=== PATIENT | male | born 1950 | race Caucasian/White ===

== ENCOUNTER → 2017-12-08 13:55 | Outpatient (REF) | payer OTHER, MEDICARE, SELFPAY ==
[2017-12-08 14:10] LABS: Basophils % 0.5 % (0.1-2.0); Eosinophils # 0.3 K/mm3 (0.0-0.4); Eosinophils % 3.9 % (0.1-12.0); Hematocrit 46.8 % (42.0-52.0); Lymphocytes # 1.8 K/mm3 (0.7-4.5); Lymphocytes % 24.5 K/mm3 (10-50); Mean Corpuscular HGB Conc 32.1 g/dL (31.8-35.4); Mean Corpuscular Volume 90.3 fl (80-94); Mean Platelet Volume 7.5 fl (7.4-10.4); Monocytes # 0.5 K/mm3 (0.1-1.0); Monocytes % 6.3 % (1.7-9.3); Neutrophils # 4.7 K/mm3 (1.8-7.8); Neutrophils % 64.7 % (37.0-80.0); Platelet Count 197 K/mm3 (142-424); Red Blood Count 5.18 M/mm3 (4.60-6.20); Red Cell Distribution Width 15.2 % (11.5-17.5); White Blood Count 7.3 K/mm3 (4.8-10.8)
[2017-12-08 14:23] LABS: Alanine Aminotransferase 50 U/L (12-78); Albumin Level 4.2 gm/dL (3.4-5.0); Albumin/Globulin Ratio 1.3 (1.1-1.8); Alkaline Phosphatase 102 U/L (46-116); Anion Gap 10.3 mEq/L (5-15); Aspartate Amino Transferase 28 U/L (15-37); Bilirubin,Total 0.9 mg/dL (0.2-1.0); Blood Urea Nitrogen 15 mg/dL (7-18); Calcium 9.5 mg/dL (8.5-10.1); Carbon Dioxide 28 mmol/L (21.0-32.0); Chloride 107 mmol/L (98-107); Creatinine,Serum 1.02 mg/dL (0.70-1.30); Estimated Glomerular Filt Rate 73 ml/min (>60); GFR (African American) 88 ML/MIN (>60); Globulin 3.2 gm/dl (1.3-3.2); Glucose 118 mg/dL (74-106); Potassium 4.3 mmoL/L (3.5-5.1); Sodium 141 mmol/L (136-145); Total Protein,Serum 7.4 gm/dL (6.4-8.2)
[2017-12-08 15:23] LABS: Erythrocyte Sedimentation Rate 18 mm/hr (0-20)
== END ==
LOC: LAB 13:55
PROVIDERS: Visit Provider Emergency Medicine
DX: R42 Dizziness and giddiness (principal); I10 Essential (primary) hypertension; E66.3 Overweight; G45.9 Transient cerebral ischemic attack, unspecified
CPT/HCPCS: 80053; 85025; 85651

== ENCOUNTER → 2017-12-08 14:02 | Outpatient (CLI) | payer OTHER, MEDICARE, SELFPAY ==
--- NOTE | 2017-12-08 14:07 | CI_ITS ---
Cerebrovascular Exam Indications: 780.2 Syncope and collapse. 780.4 Dizziness and giddiness. IMPRESSIONS 1. The bilateral vertebral arteries are patent with normal antegrade flow. 2. Study suggests less than 20% stenosis involving the right internal carotid artery and the left internal carotid artery. History: Risk factors: Hypertension. Hyperlipidemia. Carotid duplex study. Complete study and Doppler flow study including spectral analysis, color and portillo scale imaging. Height: Height: 170.2cm. Height: 67in. Weight: Weight: 93.4kg. Weight: 205.6lb. Body mass index: BMI: 32.3kg/m^2. Body surface area: BSA: 2.13m^2. Location: Vascular laboratory. Patient status: Outpatient. Tables: Arterial flow: + +--------+--------+ Location V sys V ed + +--------+--------+ Right CCA - proximal 68.4cm/s 15.7cm/s + +--------+--------+ Right CCA - distal 47.9cm/s 11cm/s + +--------+--------+ Right ECA 73.1cm/s -------- + +--------+--------+ Right ICA - proximal 66cm/s 18.1cm/s + +--------+--------+ Right ICA - mid 67.6cm/s 25.1cm/s + +--------+--------+ Right ICA - distal 66cm/s 24.4cm/s + +--------+--------+ Right vertebral 37.7cm/s -------- + +--------+--------+ Left CCA - proximal 63.6cm/s 14.9cm/s + +--------+--------+ Left CCA - distal 59.7cm/s 15.7cm/s + +--------+--------+ Left ECA 73.1cm/s -------- + +--------+--------+ Left ICA - proximal 58.1cm/s 18.1cm/s + +--------+--------+ Left ICA - mid 71.5cm/s 20.4cm/s + +--------+--------+ Left ICA - distal 67.6cm/s 27.5cm/s + +--------+--------+ Left vertebral 38.5cm/s -------- + +--------+--------+ Velocity ratios: + + + + + + Right, V sys Right, V ed Left, V sys Left, V ed + + + + + + Max ICA/dist CCA 1.41 2.28 1.2 1.75 + + + + + + (Report amended ) Electronically signed by: Yasir Morgan [id number]
--- NOTE | 2017-12-08 14:11 | MR_ITS ---
MR head/brain wo/w con HISTORY: Dizziness, right-sided facial pain, blurred vision ITS.REASON: dizziness ORDERING PHYSICIAN: Jeff Hollis MD PATIENT AGE: 66 years Comparison: 08/24/2016 TECHNIQUE: Standard multiplanar multiecho sequences are performed without and with gadolinium enhancement. Thin section images are also obtained of the internal auditory canals FINDINGS: No midline shift, mass effect, intracranial hemorrhage, or hydrocephalus is evident. No evidence of acute infarction. Cerebellopontine angles, cerebellum, and brainstem are unremarkable. No enhancing lesions are evident. Hippocampal gyri are unremarkable in the temporal horns are symmetric. The pituitary and optic chiasm are unremarkable. There are scattered periventricular and subcortical T2 white matter hyperintensities similar to the previous exam and may be due to ischemic gliotic change from microvascular disease. No mass or enhancement in the cerebellopontine angles or the seventh or eighth nerve complexes. No mastoid effusion or sinus air-fluid level. IMPRESSION: 1. Overall no change with no acute finding. 2. No acute infarction or cerebellopontine angle mass 3. Scattered periventricular and subcortical T2 white matter hyperintensities consistent with ischemic gliotic change from microvascular disease overall not significantly changed
== END ==
PROVIDERS: PCP Emergency Medicine; Visit Provider Emergency Medicine
DX: R42 Dizziness and giddiness (principal); G45.9 Transient cerebral ischemic attack, unspecified; I10 Essential (primary) hypertension
CPT/HCPCS: 70553; 93880; A9576

== ENCOUNTER → 2021-06-27 13:11 | Outpatient (CLI) | payer MEDICARE, BC, SELFPAY ==
[2021-06-27 13:30] LABS: Basophils # 0.1 K/mm3 (0-0.2); Basophils % 0.7 % (0.1-2.0); Eosinophils # 0.2 K/mm3 (0.0-0.4); Eosinophils % 2.5 % (0.1-12.0); Hemoglobin 15.3 g/dL (14.1-18.0); Lymphocytes # 1.7 K/mm3 (0.7-4.5); Lymphocytes % 23.5 % (10-50); Mean Corpuscular HGB Conc 32.5 g/dL (31.8-35.4); Mean Corpuscular Hemoglobin 30.2 pg (27.0-31.2); Mean Corpuscular Volume 92.8 fl (80-94); Mean Platelet Volume 8.7 fl (7.4-10.4); Monocytes # 0.4 K/mm3 (0.1-1.0); Monocytes % 5.7 % (1.7-9.3); Neutrophils % 67.7 % (37.0-80.0); Platelet Count 227 K/mm3 (142-424); Red Blood Count 5.06 M/mm3 (4.60-6.20); Red Cell Distribution Width 14.3 % (11.5-17.5); White Blood Count 7.4 K/mm3 (4.8-10.8)
[2021-06-27 13:56] LABS: Alanine Aminotransferase 28 U/L (12-78); Albumin Level 4.7 g/dl (3.5-5.0); Albumin/Globulin Ratio 1.9 (1.1-1.8); Alkaline Phosphatase 95 U/L (38-126); Anion Gap 14.6 mEq/L (5-15); Aspartate Amino Transferase 34 U/L (17-59); Bilirubin,Total 1.1 mg/dl (0.2-1.3); Blood Urea Nitrogen 13 mg/dl (9-20); Calcium 9.8 mg/dl (8.4-10.2); Carbon Dioxide 28 mmol/L (22.0-30.0); Chloride 100 mmol/L (98-107); Chol/HDL Ratio 5.2 (1-3.5); Cholesterol 152 mg/dl (140-200); Estimated Glomerular Filt Rate 96 ml/min (>60); GFR (African American) 116 ML/MIN (>60); Globulin 2.5 g/dL (1.3-3.2); Glucose 339 mg/dl (74-100); HDL Cholesterol 29 mg/dl (40-60); Potassium 4.6 mmoL/L (3.5-5.1); Sodium 138 mmol/L (136-145); Total Protein,Serum 7.2 g/dl (6.3-8.2); Triglycerides 323 mg/dl (30-150); VLDL Cholesterol 65 mg/dL (0-40)
[2021-06-27 14:15] LABS: 25-OH Vitamin D, Total 42.4 ng/mL (30-100); Free T4 (Free Thyroxine) 1.14 ng/dl (0.78-2.19)
[2021-06-27 14:27] LABS: Prostate Specific Ag Screen 5.4 ng/ml (0.0-4.0); Thyroid Stimulating Hormone 1.27 uIU/mL (0.465-4.68)
== END ==
PROVIDERS: Visit Provider Emergency Medicine
DX: E11.9 Type 2 diabetes mellitus without complications (principal); E55.9 Vitamin D deficiency, unspecified; Z79.84 Long term (current) use of oral hypoglycemic drugs; Z12.5 Encounter for screening for malignant neoplasm of prostate
CPT/HCPCS: 80053; 80061; 82306; 83036; 84439; 84443; 85025; G0103

== ENCOUNTER → 2021-08-16 07:58 | Outpatient (CLI) | payer MEDICARE, SELFPAY | PROVIDERS: PCP Emergency Medicine; Visit Provider Surgery | DX: Z01.812 Encounter for preprocedural laboratory examination (principal); Z11.52 Encounter for screening for COVID-19; Z12.11 Encounter for screening for malignant neoplasm of colon | CPT/HCPCS: C9803; U0003; U0005 ==

== ENCOUNTER 2021-08-19 07:26 | Day surgery (SDC) | payer MEDICARE, SELFPAY ==
[2021-08-15 13:53] VITALS: BMI 28.8
[2021-08-19 07:48] VITALS: BP 162/84; PULSE 72; RESP 18; TEMP 36.4; O2SAT 96
--- NOTE | 2021-08-19 07:56 | P.PN_ITS ---
[facility] Anesthesia Checklist - Patient Identification Patient Identification: Arm Band - Structural Data Admitted From: Home Planned Operative Procedure/s: Colonoscopy Consent for Planned Operative Procedure(s) Verified: Yes - NPO Status Verified Time NPO: 00:00 - Airway Assessment C-Spine Mobility Assessed: Yes TMJ Mobility Assessed: Yes Dentition: Poor Dentition (Few missing) - Neurological Assessment Level of Consciousness: Awake Hx Seizures: No Numbness or tingling in extremities: No - Anesthesia Plan Anesthesia Risk discussed: Yes Anesthesia Plan: Verified ASA Class: III Anesthesia Type: MAC [facility] History I have reviewed the patient's past medical history: Yes Medical History: Reports:: Diabetes Mellitus Type 2, Hyperlipidemia, Hypertension, Kidney Stones Denies:: Cancer, Internal Pacemaker, MRSA, Seizures *Have you ever received a pneumonia vaccine?: Yes *Have you received a flu vaccine this season?: Yes Anesthesia experience/problems:: None Other Surgeries: Yes: Cardiac Catheterization, Colonoscopy, Other. No: Pacemaker Amputation: No Fractures: Yes - *Social History Last grade of school completed: High school graduate Smoking Status: Never smoker Alcohol Intake: never Substance Use Type: denies use *Occupational Status:: retired Housing: house Household Members: spouse *Travel in the last 8 weeks: None Family Hx:: Cancer, Heart Attack
[2021-08-19 08:10] VITALS: O2SAT 96
--- NOTE | 2021-08-19 08:43 | P.PCN_ITS ---
- Procedure: Date: 08/19/21 Patient Date of :: 1950 Procedure Performed:: Colonoscopy with polypectomy Indications:: Screening Performing Provider:: Gorge Riojas MD Referring Provider:: . Sedation:: Monitored anesthesia care Procedure:: After informed consent was obtained the patient was taken to the endoscopy suite. Sedation ensued after the patient was transferred to the left lateral decubitus position. Pulse, blood pressure, and oxygen saturation were monitored throughout the procedure. Digital rectal exam revealed no significant ab normality. The colonoscope was placed in position. The entire colon was evaluated. The colonoscope was carefully removed and the patient was transferred to recovery in stable condition. Please see findings and specimens below for detail. Findings:: Mild anal stenosis Anal papilla Bowel preparation poor Complex polyps (see specimens) Specimens:: 7 mm lobulated/sessile polyp at 20 cm (hot snare) Large partially-pedunculated polyp at 15 cm and adjacent polyp (hot snare) Anal papilla x2 (hot snare) Recommendations:: Timing of repeat colonoscopy is pending pathology but will likely be around 1 year with extended bowel preparation secondary to limited visualization and size/nature of polyps. Complications:: No immediate with the exception of limited bowel preparation Estimated blood obtained (mL): 1
[2021-08-19 08:45] VITALS: BP 95/47; PULSE 65; RESP 18; TEMP 36.2; O2SAT 94
[2021-08-19 08:55] VITALS: BP 102/55; PULSE 65; RESP 18; O2SAT 95
[2021-08-19 09:05] VITALS: BP 106/60; PULSE 60; RESP 18; O2SAT 97
[2021-08-19 09:15] VITALS: BP 112/65; PULSE 58; RESP 18; O2SAT 97
[2022-02-26 10:58] LABS: POC Glucose,Bedside 168 (70-110)
== END 2021-08-19 09:15 | disposition home or self-care (01) ==
LOC: OUTP 07:27
PROVIDERS: PCP Emergency Medicine; Visit Provider Surgery
PROC: 0DJD8ZZ Inspection of Lower Intestinal Tract, Via Natural or Artificial Opening Endoscopic (ICD-10-PCS; principal; 2021-08-19 08:30)
DX: Z12.11 Encounter for screening for malignant neoplasm of colon (principal); K62.4 Stenosis of anus and rectum; D12.9 Benign neoplasm of anus and anal canal; K63.5 Polyp of colon; E11.9 Type 2 diabetes mellitus without complications; E78.5 Hyperlipidemia, unspecified; I10 Essential (primary) hypertension; Z87.442 Personal history of urinary calculi; Z80.9 Family history of malignant neoplasm, unspecified; Z82.3 Family history of stroke
CPT/HCPCS: 45385; 82962; 88304; 88305

== ENCOUNTER → 2021-12-17 19:07 | Outpatient (CLI) | payer MEDICARE, SELFPAY ==
[2021-12-17 13:10] LABS: Influenza A, PCR Not Detected (NotDetected); Influenza B, PCR Not Detected (NotDetected)
[2021-12-17 13:35] LABS: Coronavirus 19, PCR Detected (NotDetected); Erythrocyte Sedimentation Rate 38 mm/hr (0-20)
[2021-12-17 14:14] LABS: Hemoglobin A1C 8.7 % (4.0-6.0)
== END ==
PROVIDERS: PCP Emergency Medicine; Visit Provider Emergency Medicine
DX: E11.9 Type 2 diabetes mellitus without complications (principal); Z00.00 Encounter for general adult medical examination without abnormal findings; R68.89 Other general symptoms and signs; Z79.84 Long term (current) use of oral hypoglycemic drugs
CPT/HCPCS: 83036; 85651; C9803; U0003; U0005

== ENCOUNTER → 2023-03-17 17:04 | Outpatient (CLI) | payer MEDICARE, SELFPAY ==
[2023-03-17 15:38] LABS: Basophils % 0.5 % (0.1-2.0); Eosinophils # 0.1 K/mm3 (0.0-0.4); Eosinophils % 1.5 % (0.1-12.0); Hematocrit 47.5 % (42.0-52.0); Hemoglobin 16.4 g/dL (14.1-18.0); Lymphocytes # 1.6 K/mm3 (0.7-4.5); Lymphocytes % 19.4 % (10-50); Mean Corpuscular HGB Conc 34.4 g/dL (31.8-35.4); Mean Corpuscular Hemoglobin 31.8 pg (27.0-31.2); Mean Corpuscular Volume 92.3 fl (80-94); Mean Platelet Volume 8.5 fl (7.4-10.4); Monocytes # 0.4 K/mm3 (0.1-1.0); Monocytes % 5.4 % (1.7-9.3); Neutrophils # 5.9 K/mm3 (1.8-7.8); Neutrophils % 73.3 % (37.0-80.0); Platelet Count 239 K/mm3 (142-424); Red Blood Count 5.15 M/mm3 (4.60-6.20); Red Cell Distribution Width 14.4 % (11.5-17.5); White Blood Count 8.1 K/mm3 (4.8-10.8)
[2023-03-17 15:49] LABS: Alanine Aminotransferase 29 U/L (12-78); Albumin Level 4.9 g/dl (3.5-5.0); Albumin/Globulin Ratio 1.6 (1.1-1.8); Alkaline Phosphatase 95 U/L (38-126); Anion Gap 16.5 mEq/L (5-15); Aspartate Amino Transferase 31 U/L (17-59); Bilirubin,Total 0.9 mg/dl (0.2-1.3); Blood Urea Nitrogen 18 mg/dl (9-20); Calcium 10.2 mg/dl (8.4-10.2); Carbon Dioxide 27 mmol/L (22.0-30.0); Chloride 100 mmol/L (98-107); Chol/HDL Ratio 4.2 (1-3.5); Cholesterol 160 mg/dl (140-200); Estimated Glomerular Filt Rate 95 ml/min (>60); GFR (African American) 115 ML/MIN (>60); Glucose 324 mg/dl (74-100); HDL Cholesterol 38 mg/dl (40-60); Potassium 4.5 mmoL/L (3.5-5.1); Sodium 139 mmol/L (136-145); Total Protein,Serum 7.9 g/dl (6.3-8.2); Triglycerides 192 mg/dl (30-150); VLDL Cholesterol 38 mg/dL (0-40)
[2023-03-17 16:00] LABS: Direct LDL Cholesterol 88.94 mg/dL (100-129)
[2023-03-17 16:10] LABS: 25-OH Vitamin D, Total 42.3 ng/mL (30-100); T4 (Thyroxine) 14.1 ug/dl (5.53-11.0)
[2023-03-17 16:24] LABS: Prostate Specific Ag Screen 8.2 ng/ml (0.0-4.0); Thyroid Stimulating Hormone 1.25 uIU/mL (0.465-4.68)
[2023-03-17 16:44] LABS: Hemoglobin A1C 8.6 % (4.0-6.0)
== END ==
PROVIDERS: PCP Emergency Medicine; Visit Provider Emergency Medicine
DX: R41.0 Disorientation, unspecified (principal); I10 Essential (primary) hypertension; E55.9 Vitamin D deficiency, unspecified; Z12.5 Encounter for screening for malignant neoplasm of prostate; E11.9 Type 2 diabetes mellitus without complications; Z79.84 Long term (current) use of oral hypoglycemic drugs
CPT/HCPCS: 80053; 80061; 82306; 83036; 84436; 84443; 85025; 87086; G0103

== ENCOUNTER 2023-03-30 07:47 | Day surgery (SDC) | payer MEDICARE, SELFPAY ==
[2023-03-30] VITALS (13 sets, daily range): BP systolic 100–179; BP diastolic 54–88; PULSE 84–90; RESP 16–18; O2SAT 94–99; BMI 28.1
--- NOTE | 2023-03-30 07:10 | IR_ITS ---
APPROVED REPORT Patient Location: Outpatient PROCEDURES Left heart catheterization Left ventriculogram Selective coronary angiogram INDICATION Known coronary disease, Accelerated angina pectoris, Syncope, Informed consent was obtained prior to the procedure. COMPLICATIONS None Estimated Blood Loss: Less than 10 ml TECHNIQUE One percent lidocaine used to anesthetize the right anterior aspect of the wrist. The right radial artery was accessed via the Seldinger technique. A 6 Yi sheath was placed in the right radial artery. 2.5 mg of Verapamil, 800 mcg of nitroglycerin, 1mg Lidocaine and 5000 U Heparin were given through the arterial sheath. The papa catheter was also used to perform left heart catheterization, left ventriculogram and selective coronary angiogram. At the end of the procedure the sheath was removed good hemostasis was achieved using Traclet band, patient was transferred to the postop holding area in stable condition. ANGIOGRAPHIC RESULTS The left main artery Normal The left anterior descending artery Has mild 10% luminal irregularities followed by a proximal to mid vessel myocardial bridge which compresses to 40 to 50% during systole. The remaining vessel has 10 to 20% luminal irregularities. The LAD is large and wraps the apex. The circumflex artery Is a dominant vessel and has mild 10% luminal irregularities. 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 Continue medical management for mild coronary artery disease 2. It is unlikely the myocardial bridge is producing symptoms or syncope. If syncope is occurring with activity it may be reasonable to proceed with exercise Myoview. 3. Aggressive risk factor modification Electronically signed by : Ken Hoskins MD 03/30/2023 11:50:23
[2023-03-30 08:42] LABS: Basophils # 0.1 K/mm3 (0-0.2); Basophils % 0.6 % (0.1-2.0); Eosinophils # 0.3 K/mm3 (0.0-0.4); Eosinophils % 2.5 % (0.1-12.0); Hemoglobin 15.9 g/dL (14.1-18.0); Lymphocytes # 2.4 K/mm3 (0.7-4.5); Lymphocytes % 23.3 % (10-50); Mean Corpuscular HGB Conc 34.6 g/dL (31.8-35.4); Mean Corpuscular Hemoglobin 31.6 pg (27.0-31.2); Mean Corpuscular Volume 91.2 fl (80-94); Mean Platelet Volume 8.2 fl (7.4-10.4); Monocytes # 0.5 K/mm3 (0.1-1.0); Monocytes % 4.9 % (1.7-9.3); Neutrophils # 7.2 K/mm3 (1.8-7.8); Neutrophils % 68.8 % (37.0-80.0); Platelet Count 201 K/mm3 (142-424); Red Blood Count 5.04 M/mm3 (4.60-6.20); Red Cell Distribution Width 14.1 % (11.5-17.5); White Blood Count 10.4 K/mm3 (4.8-10.8)
[2023-03-30 08:43] LABS: Chloride 101 mmol/L (98-107); Potassium 4.2 mmoL/L (3.5-5.1); Sodium 138 mmol/L (136-145)
[2023-03-30 08:46] LABS: Anion Gap 12.2 mEq/L (5-15); Blood Urea Nitrogen 22 mg/dl (9-20); Carbon Dioxide 29 mmol/L (22.0-30.0); Creatinine Clearance Estimated 77 mL/min (50-200); Estimated Glomerular Filt Rate 83 ml/min (>60); GFR (African American) 100 ML/MIN (>60)
[2023-03-30 08:47] LABS: Calcium 9.1 mg/dl (8.4-10.2); Glucose 354 mg/dl (74-100)
[2023-03-30 08:48] LABS: Prothrombin Time 10.8 seconds (10.1-12.5)
== END 2023-03-30 14:57 | disposition home or self-care (01) ==
PROVIDERS: PCP Emergency Medicine; Visit Provider Internal Medicine
DX: R07.9 Chest pain, unspecified (principal); F17.210 Nicotine dependence, cigarettes, uncomplicated; I25.118 Atherosclerotic heart disease of native coronary artery with other forms of angina pectoris; Z79.899 Other long term (current) drug therapy; Z79.84 Long term (current) use of oral hypoglycemic drugs; E11.9 Type 2 diabetes mellitus without complications; I10 Essential (primary) hypertension; Z91.81 History of falling; I70.213 Atherosclerosis of native arteries of extremities with intermittent claudication, bilateral legs
CPT/HCPCS: 80048; 85025; 85610; 93458; 99152; C1725; C1769; J1644; Q9967

== ENCOUNTER → 2023-05-10 13:24 | Outpatient (CLI) | payer MEDICARE, SELFPAY ==
--- NOTE | 2023-05-10 13:25 | CA_ITS ---
APPROVED REPORT EXAM: Comprehensive 2D, Doppler, and color-flow Echocardiogram Deployment Manager: Flor Phillips CRT Ht: 5 ft 7 in Wt: 177lbs BSA: 1.92 BP: 125/68 mmHg Indications: Abnormal ECG, Pre-Op assessment, shortness of Breath, Fatigue, Hypertension/HDD, smoker 2D Dimensions LA Volume 24.20 mL LA Volume Index 12.60 mL/m2 (M/F) 16-34 M-Mode Dimensions RVDd 2.18 cm (0.9-2.6) LA Diam 3.52 cm (1.9-4.0) LVDd 5.05 cm (3.5-5.7) LVDs 3.72 cm (3.5-5.7) IVSd 1.97 cm (0.6-1.1) PWd 0.63 cm (0.6-1.1) EF (Teich) 51.30% FS 26.30% EDV (Teich) 121.00 mL ESV (Teich) 58.90 mL LV Diastology E Decel Time 150 (160-240 msec) E/A Ratio 0.6 MED A' 13.90 cm/s LAT A' 11.30 cm/s Aortic Valve TANESHA Index 1.30 cm2/m2 AoV Peak Carlos. 174.0 (50-130 cm/s) AO Peak GR. 12.20 mmHg AO Mean GR. 7.70 (<5 mmHg) AO VTI 25.1 (18-25 cm) TANESHA (VTI) 2.56 (2.5-4.5 cm2) Mitral Valve MV E Max Carlos. 64.0 (40-130 cm/s) MV A Velocity 107.0 (40-130 cm/s) E/A Ratio 0.60 MV PHT 44.0 ms Pulmonary Valve PV Peak Velocity 106.0 (50-150 cm/s) Tricuspid Valve TR P. Velocity 240.00 cm/s RAP Estimate 10.00 mmHg RVSP 33.10 mmHg Left Ventricle The left ventricle is normal size. The left ventricular systolic function is normal. The left ventricular ejection fraction is within the normal range. There is increased LV wall thickness. Proximal septal thickening is noted. There is no LVOT gradient at rest. There is normal LV segmental wall motion. Transmitral Doppler flow pattern suggests impaired LV relaxation. LVEF is 60%. Right Ventricle The right ventricle is normal size. The right ventricular systolic function is normal. Atria The left atrium size is normal. The right atrium size is normal. There is no Doppler evidence of interatrial shunt. Aortic Valve The aortic valve is mildly thickened. There is no aortic valvular stenosis. No aortic regurgitation is present. Mitral Valve The mitral valve leaflets are mildly thickened. No evidence of mitral valve stenosis. Trace mitral regurgitation. Tricuspid Valve The tricuspid valve leaflets are thin and pliable. Trace tricuspid regurgitation. RVSP is normal. Pulmonic Valve The pulmonary valve is normal in structure. Trace pulmonic regurgitation. Great Vessels The aortic root is normal in size. The ascending aorta is normal in size. IVC is normal in size and collapses >50% with inspiration. Pericardium There is no pericardial effusion. Other Information Study Quality: Fair Conclusion Normal biventricular systolic function. No significant valvular stenosis or regurgitation. Electronically signed by : Komal Wilburn MD 05/11/2023 23:57:12
== END ==
LOC: RT 13:25
PROVIDERS: PCP Internal Medicine; Visit Provider Physician Assistant
DX: I10 Essential (primary) hypertension (principal); I73.9 Peripheral vascular disease, unspecified; M79.604 Pain in right leg; M79.605 Pain in left leg; R00.0 Tachycardia, unspecified; R06.00 Dyspnea, unspecified; R42 Dizziness and giddiness; R53.1 Weakness; R94.31 Abnormal electrocardiogram [ECG] [EKG]; Z91.81 History of falling
CPT/HCPCS: 93306

== ENCOUNTER 2023-08-18 08:30 | Outpatient (POV) | payer MEDICARE, BC, SELFPAY ==
[2023-08-18 08:38] VITALS: BP 84/50; PULSE 100; RESP 18; O2SAT 97; BMI 25.5
--- NOTE | 2023-08-18 10:21 | A.OFFVIS_ITS ---
HPI Data of Consult Patient: new to practice Consult date: 08/18/23 Requesting Physician: Jackie London APRN Primary Care Provider: Luis Garcia Consult Narrative Reason for consult: Low back pain, bilateral leg pain History of present illness: Mr. Masters is a 72 year old male who presents today as a new patient. He is a referral from [facility]. Today he rates his pain a 9 out of 10. Patient states the pain is all in his low back with radiating symptoms into his hips and down his entire legs. Patient states that he has had back issues for years however they did significantly worsen after a fall in January where he fell off the tractor. He states that it has not been the same since. He de scribes it as a aching, throbbing sensation with numbness and tingling and occasional sharp shooting pains. He states he is even lost weight due to the worsening symptoms. He states the pain does interfere with his ability perform activities of daily living such as cooking and cleaning. Patient has tried [id number] Tylenol along with heat and ice and topicals with minimal relief. He states he has had physical therapy in the past however this made no change in his overall back symptoms. He does state years ago he did have some epidurals that did help his overall back pain. Patient denies any previous surgery. Patient does see Dr. Hoskins for his cardiac needs. Patient is currently managed with gabapentin and Mobic. His Meek has been reviewed and is appropriate. CC: Jackie London APRN [facility] Disclaimer: The information contained in this section may have been updated after the patient was seen, as this information can be updated by other users. Medical History Abnormal electrocardiogram [ECG] [EKG] Overweight Family History Other Family history of diabetes mellitus type I Family history of diabetes mellitus type II Family history of hyperlipidemia Family history of hypertension Family history of myocardial infarction Family history of stroke Lung cancer Social History (Updated 08/18/23 @ 09:09 by Farheen Camarillo RN) Smoking Status: Current every day smoker second hand exposure: No alcohol intake: never counseling provided: none substance use type: denies use current occupational status: retired Travel in the last 8 weeks: None household members: spouse housing: house current occupational exposures/hazards: No caffeine: Yes Review of Systems Review of Systems Review of systems:: pertinent systems reviewed and negative unless documented below Review of systems (narrative): Review of Systems: General: No recent weight changes, no fever, no sleep disturbances Respiratory: No cough, no shortness of air, no recurring pulmonary infections Cardiovascular/peripheral vascular: No chest pain, no palpitations, no edema, no shortness of breath Gastrointestinal: No new onset incontinence, normal bowel movements reported Genitourinary: No new onset incontinence Musculoskeletal: Low back pain, hip pain, bilateral leg pain Psychiatric: [Normal mood/affect] Neurological: [Denies weakness in extremities], [denies balance issues] Meds Home Medications and Allergies Home Medications Medication Instructions Recorded Confirmed Type aspirin 81 mg tablet,delayed See Rx Instructions .Route 08/19/21 08/18/23 History release .COMPLEX . ergocalciferol (vitamin D2) 1,250 50,000 unit PO WEEKLY Supplement 03/16/22 08/18/23 Rx mcg (50,000 unit) capsule 90 days #30 caps fexofenadine 180 mg tablet 180 mg PO DAILY . 90 days #90 tabs 03/16/22 08/18/23 Rx fluoxetine 20 mg capsule 20 mg PO DAILY . 90 days #90 caps 03/16/22 08/18/23 Rx allopurinol 300 mg tablet See Rx Instructions .Route 12/24/22 08/18/23 Rx .COMPLEX #90 tabs atorvastatin 20 mg tablet See Rx Instructions .Route 12/24/22 08/18/23 Rx .COMPLEX #90 tabs glipizide 5 mg tablet See Rx Instructions .Route 12/24/22 08/18/23 Rx .COMPLEX #90 tabs metformin 500 mg tablet See Rx Instructions .Route 12/24/22 08/18/23 Rx .COMPLEX #180 tabs losartan 100 mg tablet 100 mg PO DAILY #90 tabs 03/17/23 08/18/23 Rx metoprolol tartrate 100 mg tablet 100 mg PO DAILY #90 tabs 03/17/23 08/18/23 Rx sitagliptin phosphate 100 mg 100 mg PO DAILY #30 tabs 03/18/23 08/18/23 Rx tablet (Januvia) hydrocodone 5 mg-acetaminophen 325 1 tab PO BID PRN pain #20 tabs 03/19/23 08/18/23 Rx mg tablet nitroglycerin 0.4 mg sublingual 0.4 mg sublingual Q5M PRN chest 03/22/23 08/18/23 Rx tablet pain #30 tabs gabapentin 300 mg capsule 300 mg PO BID #60 caps 04/27/23 08/18/23 Rx tamsulosin 0.4 mg capsule (Flomax) 0.4 mg PO DAILY 05/03/23 08/18/23 History New Prescriptions to Start Prescriptions: Allergies Allergy/AdvReac Type Severity Reaction Status Date / Time No Known Allergies Allergy Verified 05/03/23 14:42 Objective Vital signs: Pulse Resp BP Pulse Ox O2 Del Method 100 H 18 84/50 L 97 Room Air 08/18/23 08:38 08/18/23 08:38 08/18/23 08:38 08/18/23 08:38 08/18/23 08:38 Narrative: Physical Exam: General: Alert and oriented x3, no acute distress, pleasant and cooperative Lungs: Respirations even and unlabored, symmetrical chest expansion Eyes: PERRL Musculoskeletal: Flexion and extension of lumbar [spine] somewhat guarded secondary to pain, [antalgic gait noted] Neurological: Speech clear, no gross sensory deficit Additional findings Additional findings: Lumbar MRI without contrast 04/22/2023 Findings: No evidence of acute osseous injury. No evidence of malalignment. Bone marrow signal is not within normal limits. Incidental hemangiomas at L3 and S2. Schmorl's nodes at the inferior endplate of L2. Conus medullaris terminates at the L1-L2 level. Conus size and signal intensity are normal. Paraspinal structures demonstrate no acute process. T12-L1 and L1-L2: No significant canal stenosis or neuroforaminal narrowing L2-3: Mild diffuse disc bulge. No significant canal or neuroforaminal narrowing L3-L4: Mild diffuse disc bulge and bilateral facet arthropathy. No significant canal or neuroforaminal narrowing L4-L5: Diffuse disc bulge with bilateral facet arthropathy and ligamentum flavum thickening. Findings result in mild central canal stenosis and narrowing of the lateral recesses without significant neuroforaminal stenosis L5-S1: Mild diffuse disc bulge and bilateral facet arthropathy results in mild bilateral neuroforaminal stenosis no significant spinal stenosis Assessment and Plan *Assessment and plan (1) Degenerative disc disease, lumbar: Status: Acute Category: Medical Code(s): M51.36 - Other intervertebral disc degeneration, lumbar region (2) Lumbar radiculopathy: Status: Acute Category: Medical Code(s): M54.16 - Radiculopathy, lumbar region (3) Hip pain: Status: Acute Qualifiers: Laterality: bilateral Qualified Code(s): M25.551 - Pain in right hip; M25.552 - Pain in left hip Category: Medical Code(s): M25.559 - Pain in unspecified hip Plan Patient is experiencing worsening pain in his low back and legs with limited range of motion of his lumbar spine. I have reviewed over the patient's MRI findings and have discussed that he may benefit from a lumbar epidural steroid injection. Risk and benefits were discussed with patient and he would like to proceed forward with this plan of care. Patient is only on a baby aspirin. Patient has tried and failed conservative therapy such as oral medication, heat and ice, topicals, prior physical therapy, at home stretching exercise for longer than 6 weeks. We will schedule the patient for an LESI L4-L5 under fluoroscopy. Patient has been instructed to contact the clinic with any concerns before the next appointment. Dr. Warner has reviewed this note and agrees with this plan of care. This note was dictated using voice recognition software and make contain errors or omissions.
== END 2023-08-18 23:59 ==
PROVIDERS: PCP Physician Assistant; Visit Provider Nurse Practitioner Family
DX: M25.551 Pain in right hip; M25.552 Pain in left hip; M51.16 Intervertebral disc disorders with radiculopathy, lumbar region
CPT/HCPCS: 99202; G0463

== ENCOUNTER 2023-09-07 10:37 | Day surgery (SDC) | payer MEDICARE, BC, SELFPAY ==
[2023-09-07 11:02] VITALS: BP 144/75; PULSE 98; RESP 18; TEMP 36.6; O2SAT 98; BMI 26.1
[2023-09-07 11:13] VITALS: BP 142/89; PULSE 95; RESP 18; O2SAT 98
[2023-09-07] MEDS: methylPREDNISolone ACETATE 80MG/ML VIAL 80 MG (11:13)
[2023-09-07 11:15] VITALS: BP 142/89; PULSE 96; RESP 18; O2SAT 96
[2023-09-07 11:18] VITALS: BP 158/72; PULSE 92; RESP 18; O2SAT 99
--- NOTE | 2023-09-07 11:18 | EXP.PAIN.PRO ---
Procedure Date: 09/07/23 Time: 11:10 Anesthesiologist:: Michael Angulo CRNA Complications:: None Pre-procedure Diagnosis:: Degenerative disc lumbar spine multilevels. Lumbar radiculopathy. Post-procedure Diagnosis:: Same. Indications for Procedure:: Patient is a very pleasant 72-year-old male comes our clinic today for a lumbar epidural steroid injection L4-5 level. Patient reports low back pain. He also reports bilateral hip and leg radicular symptoms. He rates pain 9/10. Procedure Details:: Procedure: Lumbar epidural steroid injection under fluoroscopy Informed consent was obtained and the risks and benefits of the procedure were explained to the patient. The patient was taken to the procedure room and noninvasive monitors placed, including noninvasive blood pressure cuff and pulse oximeter. The back was viewed using C-arm Fluoroscopy and prepped using Chloraprep as a cleansing solution and the L4-L5 interspace was palpated. Skin and subcutaneous tissues were anesthetized using lidocaine 1.5% and a 25-gauge needle. After this, an 18-gauge Touhy epidural needle was placed into the L4-L5 interspace and advanced using fluoroscopic guidance and loss of resistance to air until the epidural space was encountered. After confirmation of needle placement in the epidural space, with dye, a solution containing normal saline, 3 mL and Depo-Medrol 80 mg were incrementally injected into the lumbar epidural space. The patient tolerated the procedure well with no complications. The patient was observed in the Pain Clinic and then discharged home neurologically intact. Plan and Disposition:: Patient was discharged without incident.
== END 2023-09-07 11:18 | disposition home or self-care (01) ==
PROVIDERS: Visit Provider Nurse Anesthetist, Certified Registered
DX: M51.16 Intervertebral disc disorders with radiculopathy, lumbar region (principal)
CPT/HCPCS: 62323; J1010

== ENCOUNTER 2023-09-23 14:13 | Outpatient (POV) | payer MEDICARE, BC, SELFPAY ==
[2023-09-23 14:16] VITALS: BP 112/65; PULSE 100; RESP 18; O2SAT 98; BMI 25.5
--- NOTE | 2023-09-23 14:37 | EXP.PAIN.SOA ---
[facility] Pain Management SOAP Note Subjective:: Patient is a pleasant 72-year-old male who presents today for follow-up of lumbar epidural steroid injection L4-L5 on 09/07/2023. Patient rates his pain today a 6 out of 10. Patient does state that after his initial injection for the first few days he had approximately 85% relief. He states that he did feel really well and may have overdone it. 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 Patient does state that it did worsen however then starting Wednesday of this week it did ease up a little bit more. Patient states today that he feels like it is still helping a little however he is going back towards his baseline. Patient does describe his pain as a aching, throbbing sensation with numbness and tingling. Patient does state the pain interferes with his ability to perform activities of daily living such as cooking and cleaning. Patient does state that he did take a gabapentin before coming in today due to the worsening pain. His Meek has been reviewed and is appropriate. Review of Systems: General: No recent weight changes, no fever, no sleep disturbances Respiratory: No cough, no shortness of air, no recurring pulmonary infections Cardiovascular/peripheral vascular: No chest pain, no palpitations, no edema, no shortness of breath Gastrointestinal: No new onset incontinence, normal bowel movements reported Genitourinary: No new onset incontinence Musculoskeletal: Low back pain, bilateral leg pain Psychiatric: [Normal mood/affect] Neurological: [Denies weakness in extremities], [denies balance issues] Objective:: Physical Exam: General: Alert and oriented x3, no acute distress, pleasant and cooperative Lungs: Respirations even and unlabored, symmetrical chest expansion Eyes: PERRL Musculoskeletal: Flexion and extension of lumbar [spine] somewhat guarded secondary to pain, [antalgic gait noted] Neurological: Speech clear, no gross sensory deficit Assessment:: Degenerative disc disease of lumbar spine with lumbar radiculopathy symptoms Plan:: Patient is experiencing worsening pain in his low back and legs with limited range of motion of his lumbar spine. Patient did have approximately 85% relief with his initial lumbar epidural however it is wearing back off to his baseline. I have discussed with patient that he may benefit from a repeat lumbar epidural steroid injection. Risk and benefits were discussed with the patient and he would like to proceed forward with this plan of care. Patient is not on any blood thinners. I will also order the patient a compounded cream. Patient will be scheduled for his second lumbar epidural steroid injection L4-L5 under fluoroscopy. Patient has tried and failed conservative therapies such as oral medication, heat and ice, topicals, prior physical therapy and continued at home stretching exercise for longer than 6 weeks. Patient has been instructed to contact the clinic with any concerns before the next appointment. Dr. Warner has reviewed this note and agrees with this plan of care. This note was dictated using voice recognition software and make contain errors or omissions. [facility] Disclaimer: The information contained in this section may have been updated after the patient was seen, as this information can be updated by other users. Medical History Abnormal electrocardiogram [ECG] [EKG] Overweight Family History Other Family history of diabetes mellitus type I Family history of diabetes mellitus type II Family history of hyperlipidemia Family history of hypertension Family history of myocardial infarction Family history of stroke Lung cancer Social History Smoking Status: Current every day smoker second hand exposure: No alcohol intake: never counseling provided: none substance use type: denies use current occupational status: other Travel in the last 8 weeks: None household members: spouse housing: house current occupational exposures/hazards: No caffeine: Yes
== END 2023-09-23 23:59 | disposition home or self-care (01) ==
LOC: SC.PAIN 14:14
PROVIDERS: PCP Physician Assistant; Visit Provider Nurse Practitioner Family
DX: M51.16 Intervertebral disc disorders with radiculopathy, lumbar region (principal)
CPT/HCPCS: 99212; G0463

== ENCOUNTER 2023-10-12 13:50 | Day surgery (SDC) | payer MEDICARE, BC, SELFPAY ==
[2023-10-12] MEDS: methylPREDNISolone ACETATE 80MG/ML VIAL 80 MG (14:19)
[2023-10-12 14:20] VITALS: BP 129/74; BP 136/75; PULSE 114; RESP 18; O2SAT 97; O2SAT 99
[2023-10-12 14:23] VITALS: BP 138/95; PULSE 121; RESP 18; TEMP 36.7; O2SAT 99; BMI 25.4
[2023-10-12 14:25] VITALS: BP 129/74; PULSE 114; RESP 18; O2SAT 97
--- NOTE | 2023-10-12 14:59 | EXP.PAIN.PRO ---
Procedure Date: 10/12/23 Time: 14:00 Anesthesiologist:: Michael Angulo CRNA Complications:: None Pre-procedure Diagnosis:: Degenerative disc lumbar spine multilevels. Lumbar radiculopathy. Post-procedure Diagnosis:: Same. Indications for Procedure:: Pleasant 72-year-old male comes our clinic today for repeat lumbar epidural steroid injection at the L4-5 level. Patient had significant improvement terms of his overall low back pain as well as bilateral hip and leg radicular symptoms with previous injection. He rates his pain today 7/10. Main complaint is low back as well as bilateral hip and leg radicular symptoms at times. However, his previous epidural injection at the same level provided significant improvement. Procedure Details:: Procedure: Lumbar epidural steroid injection under fluoroscopy Informed consent was obtained and the risks and benefits of the procedure were explained to the patient. The patient was taken to the procedure room and noninvasive monitors placed, including noninvasive blood pressure cuff and pulse oximeter. The back was viewed using C-arm Fluoroscopy and prepped using Chloraprep as a cleansing solution and the L4-L5 interspace was palpated. Skin and subcutaneous tissues were anesthetized using lidocaine 1.5% and a 25-gauge needle. After this, an 18-gauge Touhy epidural needle was placed into the L4-L5 interspace and advanced using fluoroscopic guidance and loss of resistance to air until the epidural space was encountered. After confirmation of needle placement in the epidural space, with dye, a solution containing normal saline, 3 mL and Depo-Medrol 80 mg were incrementally injected into the lumbar epidural space. The patient tolerated the procedure well with no complications. The patient was observed in the Pain Clinic and then discharged home neurologically intact. Plan and Disposition:: Patient was discharged without incident.
== END 2023-10-12 14:20 | disposition home or self-care (01) ==
LOC: SC.PAINP 13:53
PROVIDERS: PCP Physician Assistant; Visit Provider Nurse Anesthetist, Certified Registered
DX: M51.16 Intervertebral disc disorders with radiculopathy, lumbar region (principal)
CPT/HCPCS: 62323; J1010

== ENCOUNTER 2023-11-04 08:58 | Outpatient (POV) | payer MEDICARE, BC, SELFPAY ==
--- NOTE | 2023-11-04 09:05 | A.OFFVIS_ITS ---
[facility] Pain Management SOAP Note Subjective:: Patient is a pleasant 72-year-old male who presents today for follow-up of lumbar epidural steroid injection L4-L5 on 10/12/2023. Today he rates his pain a 5 out of 10. Patient denies any new trauma since our last visit. He does state that he has had at least 65 to 75% relief following this injection and feels like it is still providing good improvement. He states that the pain is much better and he feels overall more functional. Patient does state the other week he did end up having to have a surgical procedure for kidney stone and ended up doing a TURP. Patient states that overall he did well with all of this. He is prescribed compounded cream from our office. His Meek has been reviewed and is appropriate. Review of Systems: General: No recent weight changes, no fever, no sleep disturbances Respiratory: No cough, no shortness of air, no recurring pulmonary infections Cardiovascular/peripheral vascular: No chest pain, no palpitations, no edema, no shortness of breath Gastrointestinal: No new onset incontinence, normal bowel movements reported Genitourinary: No new onset incontinence Musculoskeletal: Low back pain Psychiatric: [Normal mood/affect] Neurological: [Denies weakness in extremities], [denies balance issues] Objective:: Physical Exam: General: Alert and oriented x3, no acute distress, pleasant and cooperative Lungs: Respirations even and unlabored, symmetrical chest expansion Eyes: PERRL Musculoskeletal: Flexion and extension of lumbar [spine] somewhat guarded secondary to pain, [antalgic gait noted] Neurological: Speech clear, no gross sensory deficit Assessment:: Degenerative disc disease of lumbar spine with lumbar radiculopathy symptoms Plan:: Patient has had significant improvement following his lumbar epidural and does not require any additional injection therapy at this time. Patient will return to clinic in 1 month for reevaluation of symptoms and plan of care. Patient has been instructed to contact the clinic with any concerns before the next appointment. Dr. Warner has reviewed this note and agrees with this plan of care. This note was dictated using voice recognition software and make contain errors or omissions. [facility] Disclaimer: The information contained in this section may have been updated after the patient was seen, as this information can be updated by other users. Medical History Abnormal electrocardiogram [ECG] [EKG] Overweight Family History Other Family history of diabetes mellitus type I Family history of diabetes mellitus type II Family history of hyperlipidemia Family history of hypertension Family history of myocardial infarction Family history of stroke Lung cancer Social History Smoking Status: Current every day smoker second hand exposure: No alcohol intake: never counseling provided: none substance use type: denies use current occupational status: other Travel in the last 8 weeks: None household members: spouse housing: house current occupational exposures/hazards: No caffeine: Yes
[2023-11-04 09:25] VITALS: BP 108/75; PULSE 64; RESP 18; O2SAT 98; BMI 24.3
== END 2023-11-04 23:59 | disposition home or self-care (01) ==
LOC: SC.PAIN 08:59
PROVIDERS: PCP Physician Assistant; Visit Provider Nurse Practitioner Family
DX: M51.16 Intervertebral disc disorders with radiculopathy, lumbar region (principal)
CPT/HCPCS: 99212; G0463